=== PATIENT | male | born 1985 | race Caucasian/White ===

== ENCOUNTER 2018-11-05 10:50 | Emergency (ER) | payer SELFPAY ==
[~2018-11-05] VITALS: Ht 167.6 cm; Wt 68.2 kg
[2018-11-05 10:55] VITALS: BP 123/92; TEMP 99.2
[2018-11-05 11:39] LABS: HEMATOCRIT 39.9 % (42.0-52.0); HEMOGLOBIN 14.1 g/dl (13.5-18.0); MEAN CELL VOLUME 91 fl (80.0-100.0); MEAN CORPUSCULAR HEMOGLOBIN 32 pg (27.0-31.0); MEAN CORPUSCULAR HGB CONC 35 g/dl (33.0-37.0); MEAN PLATELET VOLUME 10.1 fl (7.4-10.4); PLATELET COUNT 492 K/mm3 (130-400); REDCELL DISTRIBUTION WIDTH-CV 12.2 % (11.5-14.5)
[2018-11-05 11:50] LABS: BAND 1 % (0-10); EOSINOPHIL 2 % (0-4); LYMPHOCYTE 23 % (20.0-51.0); NEUTROPHILS 66 % (42.0-75.2); PLATELET ESTIMATE INCREASED (NORMAL)
[2018-11-05 11:52] LABS: STOMATOCYTE 1+
[2018-11-05 11:55] LABS: ALBUMIN 3.7 gm/dL (3.5-5.0); BILIRUBIN,TOTAL 1.2 mg/dL (0.0-1.0); C-REACTIVE PROTEIN 1.3 mg/dL (0.0-0.9); CALCIUM 9.1 mg/dL (8.4-10.2); CREATININE, serum 0.64 mg/dL (0.66-1.25); POTASSIUM 3.6 mmol/L (3.4-5.0)
[2018-11-05] MEDS ORDERED: PRILOSEC 20MG20 MG PO (12:10)
[2018-11-05 12:40] VITALS: PULSE 87
== END 2018-11-05 12:44 | disposition home or self-care (01) ==
LOC: COL.ER 10:50
PROVIDERS: Family Medicine
DX: K29.70 Gastritis, unspecified, without bleeding (principal); F17.210 Nicotine dependence, cigarettes, uncomplicated
CPT/HCPCS: C9113; J2405; J7030

== ENCOUNTER 2022-04-30 14:33 | Emergency (ER) | payer OTHER ==
[~2022-04-30] VITALS: Ht 165.1 cm; Wt 68.2 kg
[~2022-04-30 14:33] MED LIST: PRILOSEC 20MG20 MG PO
[2022-04-30 14:36] VITALS: TEMP 98.1
[2022-04-30 15:02] LABS: BASO # 0.3 K/mm3 (0.0-0.2); BASO % 2.2 % (0.0-2.0); EOS % 0.2 % (0.0-4.0); GRAN # 9.4 K/mm3 (1.4-6.5); GRAN % 75.7 % (42.2-75.2); HEMOGLOBIN 15.9 g/dl (13.5-18.0); LYMPH # 1.7 K/mm3 (1.2-3.4); LYMPH % 13.7 % (20.0-51.0); MEAN CELL VOLUME 97 fl (80.0-100.0); MEAN CORPUSCULAR HEMOGLOBIN 34 pg (27-31); MEAN CORPUSCULAR HGB CONC 35 g/dl (33.0-37.0); MEAN PLATELET VOLUME 9.6 fl (7.4-10.4); MONO % 7.7 % (1.7-9.3); PLATELET COUNT 258 K/mm3 (130-400); RED BLOOD COUNT 4.73 M/mm3 (4.20-5.60); REDCELL DISTRIBUTION WIDTH-CV 13.8 % (11.5-14.5)
[2022-04-30 15:39] LABS: ALANINE AMINOTRANSFERASE 71 U/L (0-55); ALBUMIN 4.4 gm/dL (3.5-5.0); ALCOHOL(ethanol),MEDICAL 75 mg/dL (0-10); ALKALINE PHOSPHATASE 107 U/L (40-150); ANION GAP 31 mmol/L (7-16); AST,SGOT 137 U/L (5-34); BILIRUBIN,TOTAL 0.9 mg/dL (0.2-1.2); BLOOD UREA NITROGEN 9 mg/dL (9-21); CALCIUM 9.4 mg/dL (8.4-10.2); CHLORIDE 99 mmol/L (98-107); CREATINE KINASE 149 U/L (30-200); CREATININE, serum 1.08 mg/dL (0.72-1.25); GLUCOSE 81 mg/dL (70-99); POTASSIUM 3.1 mmol/L (3.5-4.5); SODIUM 139 mmol/L (136-145); TOTAL PROTEIN 8.9 gm/dL (6.2-8.1)
[2022-04-30 15:41] LABS: CARBON DIOXIDE 9 mmol/L (22-29)
[2022-04-30 15:48] LABS: TROPONIN-I < 0.010 ng/mL (0.00-0.033)
[2022-04-30 17:34] LABS: CALCIUM 8.9 mg/dL (8.4-10.2); CREATININE, serum 0.84 mg/dL (0.72-1.25); POTASSIUM 3.6 mmol/L (3.5-4.5)
[2022-04-30 18:03] VITALS: BP 164/104; PULSE 97
== END 2022-04-30 18:05 | disposition home or self-care (01) ==
LOC: COL.ER 14:33
PROVIDERS: Emergency Medicine
DX: T67.1XXA Heat syncope, initial encounter (principal); E86.0 Dehydration; R74.01 Elevation of levels of liver transaminase levels; E87.2 Acidosis; F10.929 Alcohol use, unspecified with intoxication, unspecified; F17.200 Nicotine dependence, unspecified, uncomplicated
CPT/HCPCS: J7030; J7120